=== PATIENT | male | born 1975 | race Hispanic/Latino ===

== ENCOUNTER → 2020-08-10 14:04 | Outpatient (CLI) | payer OTHER, SELFPAY ==
--- NOTE | 2020-08-10 14:08 | DI.MRI.S_ITS ---
PROCEDURE: MR SHOULDER RT WO CON INDICATIONS: LIMITED RANGE OF MOTION OF RIGHT SHOULDER TECHNIQUE: Noncontrast oblique coronal T2 fast spin echo with fat saturation, oblique sagittal T1 spin echo and T2 fast spin echo with fat saturation, axial T1 spin echo and T2 fast spin echo with fat saturation through the shoulder. COMPARISON: None. FINDINGS: Rotator cuff: Supraspinatus and infraspinatus tendinopathy. Low-grade bursal surface fraying of the supraspinatus and infraspinatus tendons. Teres minor tendon appears intact. Subscapularis appears intact. No atrophy of the rotator cuff muscles although there is fatty infiltration of the subscapularis, infraspinatus and supraspinatus muscle. Bones and bursae: No bone marrow contusions or fractures. Mild acromioclavicular joint degeneration. Acromion demonstrates conventional anatomy, without an os acromiale. Mild subacromial-subdeltoid bursitis. Capsule and soft tissues: Labrum: Posterior labral tear is seen, with small 1 mm paralabral cysts, for example image 14/5. There is adjacent sclerosis and spurring at the glenoid rim. Slight posterior subluxed appearance of the humeral head relative to the glenoid raising the possibility of microinstability. Long head of the biceps tendon intact. The rotator interval appears normal, without fibrosis. Coracohumeral ligament intact. IMPRESSION: Mild rotator cuff tendinopathy with low-grade bursal surface fraying as above. Mild subacromial-subdeltoid bursitis. Chronic posterior labral tear with associated tiny 1 mm paralabral cysts. Adjacent degenerative changes seen at the glenoid rim. Posterior subluxed appearance of the humeral head relative to the glenoid which raises the possibility of microinstability. Dictated by: Shyam Farmer M.D. on 08/10/2020 at 16:00 Approved by: Shyam Farmer M.D. on 08/10/2020 at 16:05
== END ==
PROVIDERS: Referring Provider Family Medicine; Visit Provider Family Medicine
DX: M25.511 Pain in right shoulder (principal); M75.51 Bursitis of right shoulder; S43.491A Other sprain of right shoulder joint, initial encounter
CPT/HCPCS: 73221

== ENCOUNTER 2021-09-21 08:33 | Emergency (ER) | payer OTHER, SELFPAY ==
[2021-09-21] VITALS (7 sets, daily range): BP systolic 117–139; BP diastolic 69–92; PULSE 68–80; RESP 18; TEMP 36.9; O2SAT 96–99; BMI 31.5
--- NOTE | 2021-09-21 08:43 | ED.EXTPRO ---
HPI - Extremity Problem General Chief complaint: Recheck/Abnormal Lab/Rx Stated complaint: Swelling of rt side of body- meds not helping Time Seen by Provider: 09/21/21 08:34 History of Present Illness HPI Narrative: 46M nonsmoker presents with his and the chief complaint of a few days of painless swelling of entire R arm, R side face swelling in the absence of injury. He's had no fever or chills. He is not dizzy nor weak or lightheaded. He denies any chest pain or shortness of breath. He denies any obvious injury or overuse. He thinks maybe he had a blood draw in that arm at some point but denies any history of the same. He denies any recent travel, injury, history of blood clot or undiagnosed cancer. He does have some swelling in the right side of his face but denies any neurologic symptoms such as headache, confusion, dizziness, blurred vision, trouble speech, sore throat or difficulty swallowing nor extremity numbness, tingling or weakness. He does state that his right arm feels like it has increased pressure because of the swelling but denies pain, numbness, tingling or weakness. He states he was seen at outside facility and was diagnosed with cellulitis and placed on an antibiotic. He states no labs or imaging were performed. He denies any improvement, if anything perhaps a bit worse Related Data Home Medications Medication Instructions Recorded Confirmed cephalexin 500 mg capsule 500 mg PO Q6H 09/21/21 09/21/21 Review of Systems Review of Systems Narrative: GENERAL: Denies chills, fatigue, malaise, fever, sweats. HEENT: Denies sinus pain, ear pain, sore throat, difficulty swallowing, dizziness. RESPIRATORY: Denies dyspnea, cough, wheezing, hemoptysis, sputum. CARDIOVASCULAR: Denies chest pain, palpitations, orthopnea, edema, GASTROINTESTINAL: Denies nausea, vomiting, abdominal pain, diarrhea, constipation, melena. : Denies dysuria, frequency, incontinence, hematuria, urinary retention. MUSCULOSKELETAL: See HPI SKIN: See HPI NEUROLOGIC: Denies weakness, headache, numbness, change in speech, confusion, seizures, incoordination. PSYCHIATRIC: No concerning psychosocial issues. 12 point review of systems is negative except for those stated above Patient History Social History Smoking Status: Never smoker Exam Narrative Exam Narrative: GENERAL: [46] year old patient appears stated age. Well-developed patient, in mild distress. HEAD: Atraumatic. Normocephalic. Possible minimal right-sided facial swelling in the absence of pain, erythema, induration. No tongue, lip or throat involvement EYES: Pupils equal round and reactive. Extraocular motions intact. No scleral icterus. No injection or drainage. ENT: Nose without bleeding, purulent drainage. Throat without erythema, tonsillar hypertrophy or exudate. Airway patent. NECK: Trachea midline. Non tender CARDIOVASCULAR: Regular rate and rhythm without murmurs, gallops, or rubs. RESPIRATORY: Clear to auscultation. Breath sounds equal bilaterally. No wheezes, rales, or rhonchi. GASTROINTESTINAL: Abdomen soft, non-tender, nondistended. EXTREMITIES: Right arm from shoulder to fingers with edema, no warmth or tenderness, cap refill, sensation and distal pulses intact. BACK: Nontender without deformity or crepitance. No flank tenderness. NEURO: AOx3. SKIN: No rash or erythema of visible areas Initial Vital Signs Initial Vital Signs: Vital Signs Temperature 98.4 F 09/21/21 08:41 Pulse Rate 80 09/21/21 08:41 Respiratory Rate 18 09/21/21 08:41 Blood Pressure 139/90 09/21/21 08:41 Pulse Oximetry 98 09/21/21 08:41 Oxygen Delivery Method 09/21/21 08:41 Course Orders Ordered: ED Orders 09/21/21 08:46 CBC Auto Diff [Complete Blood Count AUTO DIFF] Stat CMP [Comprehensive Metabolic Panel] Stat CRP [C-Reactive Protein Quant] Stat ESR [Erythrocyte Sedimentation Rate] Stat 09/21/21 08:50 US periph venous up extrem rt Stat 09/21/21 09:55 CT angio chest abdomen pelvis Stat Vital Signs Vital signs: Vital Signs - 8 hr 09/21/21 08:41 09/21/21 09:04 09/21/21 12:06 Temperature 98.4 F Pulse Rate 80 77 69 Respiratory Rate 18 18 18 Blood Pressure 139/90 139/92 H 138/82 Pulse Oximetry 98 98 96 Oxygen Delivery Method Room Air Room Air Room Air MDM - Extremity (Nontraumatic) Lab Data Result diagrams: 09/21/21 08:46 09/21/21 08:46 Labs: Lab Results 09/21/21 09/21/21 Range/Units 08:46 08:46 WBC 6.3 (4.5-11.0) X10^3/uL RBC 5.20 (4.5-5.9) X10^6/uL Hgb 14.5 (13.5-17.5) g/dL Hct 41.5 (41-53) % MCV 79.9 L (80-100) fL MCH 28.0 (26-34) PG MCHC 35.0 (30-36) % RDW 13.5 (11.6-14.8) % Plt Count 245 (150-400) X10^3/uL Neut % (Auto) 58.2 (50-75) % Lymph % (Auto) 31.5 (25-40) % [place] % (Auto) 5.7 (3-14) % Eos % (Auto) 3.8 (2-4) % Baso % (Auto) 0.8 (0-2) % Neut # (Auto) 3700 (9704-8835) /uL Lymph # (Auto) 2000 (1955-0348) /uL [place] # (Auto) 400 (0-900) /uL Eos # (Auto) 200 (0-450) /uL Baso # (Auto) 0 (0-100) /uL ESR 8 (0-15) MM/HR Sodium 141 (137-145) mmol/L Potassium 3.9 (3.4-5.1) mmol/L Chloride 106 (98-107) mmol/L Carbon Dioxide 31 (22-32) mmol/L BUN 12 (9-20) mg/dL Creatinine 1.00 (0.66-1.25) mg/dL Estimated GFR > 60 (>60) mL/min BUN/Creatinine Ratio 12.0 (6-22) Glucose 97 (70-100) mg/dL Calcium 8.5 (8.4-10.2) mg/dL Total Bilirubin 0.7 (0.2-1.3) mg/dL AST 205 H (17-59) IU/L ALT 109 H (<50) IU/L Alkaline Phosphatase 67 (38-126) U/L C-Reactive Protein 0.8 (<1.0) mg/dL Total Protein 7.3 (6.3-8.2) g/dL Albumin 4.0 (3.5-5.0) g/dL Globulin 3.3 (1.7-4.1) g/dL Albumin/Globulin Ratio 1.2 (1.0-2.8) Imaging Data CT scan - chest: Radiologist's Impression: Close Chest/Abdomen/Pelvis CTA (Signed) Tom Barker - 09/21/21 Peripheral Vascular Ultrasound (Signed) Saúl Casanova - 09/21/21 Shoulder MRI (Signed) Shyam Farmer - 08/10/20 Launch?[address] [address] [address] Scan Report Signed Patient: Von Sandoval MR#: [id number] : 1975 Acct:[id number] Age/Sex: 46 / M Date of Service: 09/21/21 Loc: ED Accession Number: [id number] ?? Procedure: CT angio chest abdomen pelvis Ordering Provider: Pascual Saldana D.O. PROCEDURE:? CT ANGIO CHEST ABDOMEN PELVIS ? INDICATIONS:? swelling arm, neck, chest, elevated LFTs ? TECHNIQUE:? Precontrast 5 mm thick sections acquired from the lung apices to the iliac crests.? After the administration of intravenous contrast, 2.5 mm thick sections again acquired from the lung apices to the iliac crests.? Maximum intensity projection (MIP) oblique sagittal and coronal reformats were then acquired.? For radiation dose reduction, the following was used:? automated exposure control.? ? COMPARISON:? None. ? FINDINGS:? ? Chest: Lungs and pleural spaces are clear.? Normal heart size.? No pericardial effusion.? No threshold enlarged thoracic lymph node by CT size criteria.? Normal size and appearance the aorta without acute finding.? No central/proximal pulmonary artery filling defect identified.? No acute fracture or chest wall lesion identified. ? Abdomen:? Normal appearance of the abdominal aorta and major visceral branches.? Normal CT angiographic appearance of the liver, gallbladder, spleen, pancreas, adrenal glands, and kidneys.? No urinary tract calculus or hydroureteronephrosis.? No acute enteric abnormality.? No free fluid or free air. ? Pelvis:? Sigmoid diverticulosis without findings of diverticulitis.? Urinary bladder is normal.? Prostate unremarkable.? No free pelvic fluid.? Pelvic osseous structures are intact. ? ? IMPRESSION:? ? No acute finding in the chest, abdomen, or pelvis. ? Partially visualized soft tissues in the right upper extremity demonstrate circumferential reticular edema. ? Dictated by: Tom Barker M.D. on 09/21/2021 at 11:26 ? ? Approved by: Tom Barker M.D. on 09/21/2021 at 11:30 ? US - DVT: Radiologist's Impression: Von Sandoval??46??M??1975 ? Allergy/Adv: Not Recorded Close Chest/Abdomen/Pelvis CTA (Signed) Tom Barker - 09/21/21 Peripheral Vascular Ultrasound (Signed) Saúl Casanova - 09/21/21 Shoulder MRI (Signed) Shyam Farmer - 08/10/20 Launch?[place] [address] Ultrasound Report Signed Patient: Von Sandoval MR#: [id number] : 1975 Acct:[id number] Age/Sex: 46 / M Date of Service: 09/21/21 Loc: ED Accession Number: [id number] ?? Procedure: US periph venous up extrem rt Ordering Provider: Pascual Saldana D.O. PROCEDURE:? US PERIPH VENOUS UP EXTREM RT ? INDICATIONS:? RUE, NECK EDEMA ? TECHNIQUE:? Real-time imaging, as well as color and pulse Doppler interrogation, was performed of the right upper extremity deep veins from the inferior neck to the antecubital fossa.? ? COMPARISON:? None. ? FINDINGS:? The internal jugular vein, visualized portions of the subclavian vein, axillary, and brachial veins are free of intraluminal thrombus.? Where physically possible, the veins are normally compressible.? Color and pulse Doppler demonstrate normal intraluminal flow, with expected phasicity and pulsatility.? Additional scanning of the cephalic and basilic veins of the superficial system demonstrate normal compressibility, without thrombus.? ? IMPRESSION:? ? Negative for deep venous thrombosis. ? ? Dictated by: Saúl Casanova M.D. on 09/21/2021 at 9:25 ? ? Approved by: Saúl Casanova M.D. on 09/21/2021 at 9:25 ? MDM Narrative Medical decision making narrative: Patient history and exam are concerning and significant diagnoses considered including DVT, cellulitis, other obstructive process in chest/abdomen that could be impairing venous return. DVT US is read as normal, and advanced imaging was ordered which was very reassuring. Patient has minimal complaints, has stable vitals, and reassuring labs. No significant findings are noted. Patient has follow up available, and has been given extensive return precautions. Questions have been answered to his apparent satisfaction Discharge Plan Departure Patient Disposition: Home Clinical Impression: Edema of right upper extremity Instructions: Edema Activity Restrictions/Additional Instructions: *You have been diagnosed with [right upper extremity swelling. As we discussed your history and physical exam are concerning but after extensive evaluation including labs, ultrasound and CT with IV contrast there are no significant findings such as blood clots, abscess, tumors or other significant diagnoses which would require a different or more specific or immediate intervention] *What to do: *Please continue to take your regular medications as directed. *Please follow up with your primary care provider in 2-3 days, call for an appointment. Let them know you were seen in the Emergency Department and that we ask that you be seen in follow up. We will electronically transmit a record of today's note if your PCP is in our system *If you do not have a primary care provider please contact the [facility] Resource line at [phone]. They will ask some questions about your medical history and help get you set up with a doctor in the community. *Return to Emergency Department if you should have any new, worsening or concerning symptoms, such as [fever greater than 101 F, shaking chills, worsening pain, persistent vomiting or other bothersome symptoms] Prescriptions: No Action cephalexin 500 mg capsule 500 mg PO Q6H Label Comments: Started 09/20 at 0400 Visit Report Forms: Patient Portal/API
--- NOTE | 2021-09-21 08:50 | DI.US.S_ITS ---
PROCEDURE: US PERIPH VENOUS UP EXTREM RT INDICATIONS: RUE, NECK EDEMA TECHNIQUE: Real-time imaging, as well as color and pulse Doppler interrogation, was performed of the right upper extremity deep veins from the inferior neck to the antecubital fossa. COMPARISON: None. FINDINGS: The internal jugular vein, visualized portions of the subclavian vein, axillary, and brachial veins are free of intraluminal thrombus. Where physically possible, the veins are normally compressible. Color and pulse Doppler demonstrate normal intraluminal flow, with expected phasicity and pulsatility. Additional scanning of the cephalic and basilic veins of the superficial system demonstrate normal compressibility, without thrombus. IMPRESSION: Negative for deep venous thrombosis. Dictated by: Saúl Casanova M.D. on 09/21/2021 at 9:25 Approved by: Saúl Casanova M.D. on 09/21/2021 at 9:25
[2021-09-21 09:01] LABS: Add Manual Diff / Slide Review NO; Basophils Absolute Auto 0 /uL (0-100); Basophils Percent Auto 0.8 % (0-2); Eosinophils Absolute Auto 200 /uL (0-450); Eosinophils Percent Auto 3.8 % (2-4); Hematocrit 41.5 % (41-53); Hemoglobin 14.5 g/dL (13.5-17.5); Lymphocytes Absolute Auto 2000 /uL (1100-4500); Lymphocytes Percent Auto 31.5 % (25-40); Mean Corpuscular Volume 79.9 fL (80-100); Monocytes Absolute Auto 400 /uL (0-900); Monocytes Percent Auto 5.7 % (3-14); Neutrophils Absolute Auto 3700 /uL (1500-7000); Neutrophils Percent Auto 58.2 % (50-75); Platelet Count 245 X10^3/uL (150-400); Red Cell Distribution Width 13.5 % (11.6-14.8); White Blood Cell Count 6.3 X10^3/uL (4.5-11.0)
[2021-09-21 09:16] LABS: HEMOLYSIS < 15 (0-50); Potassium 3.9 mmol/L (3.4-5.1)
[2021-09-21 09:18] LABS: Alanine Aminotransferase 109 IU/L (<50); Albumin Globulin Ratio 1.2 (1.0-2.8); Alkaline Phosphatase 67 U/L (38-126); Aspartate Aminotransferase 205 IU/L (17-59); Bilirubin Total 0.7 mg/dL (0.2-1.3); Blood Urea Nitrogen 12 mg/dL (9-20); C-Reactive Protein Quant 0.8 mg/dL (<1.0); Calcium 8.5 mg/dL (8.4-10.2); Carbon Dioxide 31 mmol/L (22-32); Chloride 106 mmol/L (98-107); Estimated Glomerular Filt Rate > 60 mL/min (>60); Globulin 3.3 g/dL (1.7-4.1); Glucose 97 mg/dL (70-100); Sodium 141 mmol/L (137-145); Total Protein 7.3 g/dL (6.3-8.2)
[2021-09-21 09:20] LABS: Erythrocyte Sedimentation Rate 8 MM/HR (0-15)
--- NOTE | 2021-09-21 09:55 | DI.CT.S_ITS ---
PROCEDURE: CT ANGIO CHEST ABDOMEN PELVIS INDICATIONS: swelling arm, neck, chest, elevated LFTs TECHNIQUE: Precontrast 5 mm thick sections acquired from the lung apices to the iliac crests. After the administration of intravenous contrast, 2.5 mm thick sections again acquired from the lung apices to the iliac crests. Maximum intensity projection (MIP) oblique sagittal and coronal reformats were then acquired. For radiation dose reduction, the following was used: automated exposure control. COMPARISON: None. FINDINGS: Chest: Lungs and pleural spaces are clear. Normal heart size. No pericardial effusion. No threshold enlarged thoracic lymph node by CT size criteria. Normal size and appearance the aorta without acute finding. No central/proximal pulmonary artery filling defect identified. No acute fracture or chest wall lesion identified. Abdomen: Normal appearance of the abdominal aorta and major visceral branches. Normal CT angiographic appearance of the liver, gallbladder, spleen, pancreas, adrenal glands, and kidneys. No urinary tract calculus or hydroureteronephrosis. No acute enteric abnormality. No free fluid or free air. Pelvis: Sigmoid diverticulosis without findings of diverticulitis. Urinary bladder is normal. Prostate unremarkable. No free pelvic fluid. Pelvic osseous structures are intact. IMPRESSION: No acute finding in the chest, abdomen, or pelvis. Partially visualized soft tissues in the right upper extremity demonstrate circumferential reticular edema. Dictated by: Tom Barker M.D. on 09/21/2021 at 11:26 Approved by: Tom Barker M.D. on 09/21/2021 at 11:30
== END 2021-09-21 13:19 | disposition home or self-care (01) ==
PROVIDERS: Emergency Provider Emergency Medicine
DX: R60.0 Localized edema (principal); R79.89 Other specified abnormal findings of blood chemistry
CPT/HCPCS: 36415; 71275; 74174; 80053; 85025; 85651; 86140; 93971; 99283; Q9967